=== PATIENT | female | born 1955 | race Caucasian/White ===

== ENCOUNTER 2022-10-09 06:20 | Day surgery (SDC) | payer OTHER ==
[2022-10-08 19:27] VITALS: BP 114/59; PULSE 75; RESP 17
[~2022-10-09] VITALS: Ht 157.5 cm; Wt 67.4 kg
[~2022-10-09 06:20] MED LIST: AMLO2.5T4 PO; LISI20TA24 PO; ROSU10TA28 PO
[2022-10-09 07:00] VITALS: BP 128/67; PULSE 66; RESP 17
[2022-10-09] MEDS ORDERED: LIDOCAINE HCL 1% 20 ML VIAL ONE (07:21)
[2022-10-09] MEDS ORDERED: PROPOFOL 10 MG/ML 20ML VIAL IV ONE (07:21)
[2022-10-09] MEDS ORDERED: 0.9%NACL 1000ML 1,000 ML IV ONE (07:40)
== END 2022-10-09 08:55 ==
LOC: ENDO 06:20 → DAH 06:20 → ENDO 08:55
PROVIDERS: ATTEND Surgery
DX: K31.84 Gastroparesis (principal); K29.50 Unspecified chronic gastritis without bleeding; K31.89 Other diseases of stomach and duodenum; K44.9 Diaphragmatic hernia without obstruction or gangrene; I10 Essential (primary) hypertension; M81.0 Age-related osteoporosis without current pathological fracture; E03.9 Hypothyroidism, unspecified; F41.9 Anxiety disorder, unspecified; Z88.0 Allergy status to penicillin; Z86.19 Personal history of other infectious and parasitic diseases; Z98.890 Other specified postprocedural states; Z79.899 Other long term (current) drug therapy; Z72.89 Other problems related to lifestyle
CPT/HCPCS: 93005; 43239; J7030 ×2; J2704; A4215 ×2; A4223; A4657; A7002; A4222; A4221; A4663; A4606; J3490